=== PATIENT | female | born 1960 | race Caucasian/White ===

== ENCOUNTER 2019-02-28 10:26 | Day surgery (SDC) | payer OTHER ==
[~2019-02-28] VITALS: Ht 165.1 cm; Wt 80.7 kg
[~2019-02-28 10:26] MED LIST: AMLODIPINE; ATORVASTATIN
[2019-02-28 12:53] VITALS: Ht 165.1 cm; Wt 80.7 kg
[2019-02-28 13:03] VITALS: BP 160/77; PULSE 54; RESP 17
[2019-02-28] MEDS ORDERED: LIDOCAINE 2% (SDV) 5 ML INJ ONE (14:12)
[2019-02-28] MEDS ORDERED: PROPOFOL 40 ML ONE (14:12)
[2019-02-28] MEDS ORDERED: GLYCOPYRROLATE 0.4 MG INJ ONE (14:12)
[2019-02-28 15:26] VITALS: BP 153/81; PULSE 74; RESP 16
== END 2019-02-28 16:15 | disposition home or self-care (01) ==
LOC: GIL 10:26
PROVIDERS: ATTEND Internal Medicine Gastroenterology
DX: Z12.11 Encounter for screening for malignant neoplasm of colon (principal); K57.30 Diverticulosis of large intestine without perforation or abscess without bleeding; D12.0 Benign neoplasm of cecum
CPT/HCPCS: 88305